=== PATIENT | male | born 1940 | race African-American/Black ===

== ENCOUNTER 2022-03-05 18:53 | Emergency (ER) | payer MEDICARE, BC, SELFPAY ==
[2022-03-05 18:59] VITALS: BP 162/81; PULSE 86; RESP 14; TEMP 37.7; O2SAT 99
--- NOTE | 2022-03-05 19:10 | ED.MALEGU ---
HPI - Male Genitourinary General Chief complaint: Urogenital-Male Stated complaint: frequent urination and ams Time Seen by Provider: 03/05/22 19:02 History of Present Illness HPI Narrative: pt says today woke up at assisted living noted frequency with urination no n/v/d/abd pain/cp.sob/f/uri or back pain no testicular issues or trauma/neuro chagnes and says better now. staff thinks he might have been a little confused no other issues Related Data Home Medications Medication Instructions Recorded Confirmed acetaminophen 325 mg tablet 325 mg PO Q6H PRN 12/30/19 amino ac-protein hydro-whey See Rx Instructions PO DAILY ml 12/30/19 protein 10 gram-100 kcal/30 mL oral liquid arginine-vitamin C-vitamin E oral 1 gm PO DAILY each 12/30/19 4.5 gram-156 mg/9.2 gram powder pkt artifi.tears(hypromellose)(PF) 0.3 1 drop EACH EYE DAILY PRN 12/30/19 % eye drops ascorbic acid (vitamin C) 1,000 mg 1 gm PO DAILY 12/30/19 tablet aspirin 325 mg tablet 325 mg PO DAILY 12/30/19 atorvastatin 20 mg tablet 20 mg PO DAILY 12/30/19 bisacodyl 10 mg rectal suppository 10 mg RECTAL DAILY PRN 12/30/19 cetirizine 10 mg tablet 5 mg PO DAILY PRN 12/30/19 diphenhydramine HCl 25 mg tablet 25 mg PO TID PRN 12/30/19 ferrous sulfate 325 mg (65 mg 325 mg PO DAILY 12/30/19 iron) tablet furosemide 20 mg tablet 20 mg PO QAM 12/30/19 guaifenesin 100 mg/5 mL oral liquid 200 mg PO Q6H PRN ml 12/30/19 insulin aspart U-100 100 unit/mL See Rx Instructions SUB-Q .sliding 12/30/19 (3 mL) subcutaneous pen scale ml insulin glargine 100 unit/mL (3 20 unit SUB-Q QPM ml 12/30/19 mL) subcutaneous pen insulin glargine 100 unit/mL (3 25 unit SUB-Q DAILY 12/30/19 mL) subcutaneous pen melatonin 5 mg tablet 5 mg PO QPM tablet 12/30/19 metformin 500 mg tablet 500 mg PO BID 12/30/19 metoprolol tartrate 50 mg tablet 50 mg PO DAILY 12/30/19 multivit with minerals-iron 18 1 tablet PO DAILY tablet 12/30/19 mg-folic ac 400 mcg-vit K 25 mcg tablet potassium chloride 10 mEq 10 meq PO DAILY 12/30/19 tablet,extended release prednisolone acetate 1 % eye 1 drop EACH EYE Q12H 12/30/19 drops,suspension tamsulosin 0.4 mg capsule 0.4 mg PO DAILY 12/30/19 travoprost 0.004 % eye drops 1 drop EACH EYE QPM 12/30/19 Allergies Allergy/AdvReac Type Severity Reaction Status Date / Time No Known Allergies Allergy Verified 03/05/22 19:08 Review of Systems Review of Systems: CONSTITUTIONAL: Denies fever, chills, or sweats. EYES: Denies visual changes, redness, or discharge. ENT: Denies rhinorrhea, congestion, sore throat, or otalgia. CARDIOVASCULAR: Denies chest pain, palpitations, or edema. RESPIRATORY: Denies cough or dyspnea. GASTROINTESTINAL: Denies abdominal pain, nausea, vomiting, or diarrhea. GENITOURINARY: Denies dysuria SKIN: Denies rash or itching. MUSCULOSKELETAL: Denies back pain, joint pain, or myalgia. NEUROLOGIC: Denies headache, numbness, or weakness. PSYCHIATRIC: Denies anxiety or depression. [facility] Past Medical History Medical History (Updated 03/05/22 @ 21:05 by Flori Sethi MD) Amputation toe Right foot Anemia Depression Diabetes Diabetic neuropathy Heart murmur HTN (hypertension) Hyperlipidemia Insomnia Prostate cancer Family History Family History (Updated 04/27/18 @ 09:11 by DOCTOR UNKNOWN) Mother Diabetes mellitus Other Cerebrovascular accident Family history of arthritis Hypertension Social History Social History Smoking status: Never smoker Alcohol intake: current Exam Narrative: APPEARANCE: Well appearing, no pain in distress, well-nourished. Head normocephalic atraumtaic. EYES: PERRLA/EOMI, conjunctivae very clear. NOSE: Normal no drainage EARS:TMS clear Jag Martinez, with good light reflex. THROAT: Pharynx clear, no exudate. NECK: Supple. No adenopathy, no masses. RESPIRATORY: Airway patent, repsirations nonlabored. Clear to auscultation bilaterally, no rales, rho
[2022-03-05 19:27] LABS: Basophils Percent Auto 0.3 % (0.2-1.2); Eosinophils Percent Auto 0.2 % (0-4.4); Hematocrit 46.4 % (42.0-52.0); Hemoglobin 15.7 g/dL (14.0-18.0); Immature Granulocyte Absolute 0.06 K/mm3 (0.00-0.031); Immature Granulocyte Percent A 0.5 % (0-0.5); Lymphocytes Absolute Auto 0.87 K/mm3 (0.9-3.2); Lymphocytes Percent Auto 6.9 % (18.3-44.2); Mean Corpuscular HGB Conc 33.8 g/dl (32-36); Mean Corpuscular Hemoglobin 31.3 pg (26-34); Mean Corpuscular Volume 92.4 fl (80-100); Mean Platelet Volume 11.7 fl (7.4-10.4); Monocytes Absolute Auto 0.9 K/mm3 (0.1-0.6); Neutrophils Absolute Auto 10.7 K/mm3 (1.3-6.7); Neutrophils Percent Auto 85.1 % (45.5-73.1); Platelet Count Result 274 k/mm3 (150-375); Red Blood Count 5.02 M/mm3 (4.6-6.20); Red Cell Distribution Width 13.4 % (11.5-14.5); White Blood Count 12.5 K/mm3 (4.5-10.0)
[2022-03-05 19:39] LABS: Alanine Aminotransferase 25 U/L (4-50); Albumin Level 4.5 g/dL (3.5-5.1); Alkaline Phosphatase 120 U/L (38-126); Anion Gap 12 mmol/L (8-16); Aspartate Amino Transferase 39 U/L (17-59); Bilirubin,Total 0.3 mg/dL (0.2-1.3); Blood Urea Nitrogen 17 mg/dL (9-20); Calcium 9.5 mg/dL (8.4-10.2); Carbon Dioxide 24 mmol/L (22-30); Chloride 104 mmol/L (98-107); Estimated CRCL calculation 62 ml/min; Estimated Glomerular Filt Rate > 60; Glucose 141 mg/dL (65-110); Potassium 3.9 mmol/L (3.4-5.0); Sodium 140 mmol/L (137-145)
[2022-03-05 20:37] LABS: Add Urine Microscopic? YES; Appearance Urine Cloudy (Clear); Bilirubin Urine Negative (Negative); Blood Urine 3+ (Negative); Color Urine Yellow (Yellow); Glucose Urine UA 3+ mg/dL (Negative); Ketones Urine 1+ mg/dL (Negative); Leukocyte Esterase Ur 2+ LEU/UL (Negative); Mucus Urine Rare /lpf; Nitrate Urine Negative (Negative); Protein Urine 2+ mg/dL (Negative); RBC Urine >75 /hpf (0-2); Specific Grav Ur 1.021 (1.001-1.035); Urobilinogen Urine Negative mg/dL (<2.0); WBC Urine 51-75 /hpf
[2022-03-05 21:13] VITALS: BP 142/96; PULSE 74; RESP 17; O2SAT 99
--- NOTE | 2022-03-05 21:22 | PC.NURSE ---
EMS arrival for transport ETA 10pm.
[2022-03-05 22:57] VITALS: BP 149/83; PULSE 76; RESP 14; O2SAT 99
[2022-03-05 23:45] VITALS: BP 168/92; PULSE 75; RESP 13; O2SAT 98
[2022-03-06 00:16] VITALS: BP 166/89; PULSE 77; RESP 13; O2SAT 98
== END 2022-03-06 00:18 ==
PROVIDERS: Emergency Provider Emergency Medicine
DX: N39.0 Urinary tract infection, site not specified (principal); E11.40 Type 2 diabetes mellitus with diabetic neuropathy, unspecified; I10 Essential (primary) hypertension; E78.5 Hyperlipidemia, unspecified; Z85.46 Personal history of malignant neoplasm of prostate; Z86.2 Personal history of diseases of the blood and blood-forming organs and certain disorders involving the immune mechanism; Z79.82 Long term (current) use of aspirin; Z79.84 Long term (current) use of oral hypoglycemic drugs; Z79.4 Long term (current) use of insulin; Z89.431 Acquired absence of right foot
CPT/HCPCS: 36415; 80053; 81001; 85025; 87086; 87088; 96365; 99284; J0696

== ENCOUNTER 2023-02-07 19:17 | Emergency (ER) | payer MEDICARE, BC, SELFPAY ==
[2023-02-07 19:19] VITALS: BP 189/72; PULSE 78; RESP 16; TEMP 36.8; O2SAT 100
[2023-02-07 19:29] LABS: Glucose Point of Care 193 mg/dl (65-105)
[2023-02-07 22:22] LABS: Appearance Urine Cloudy (Clear); Bacteria Urine None Seen /hpf; Bilirubin Urine Negative (Negative); Blood Urine 3+ (Negative); Color Urine Yellow (Yellow); Glucose Urine UA 3+ mg/dL (Negative); Ketones Urine 1+ mg/dL (Negative); Leukocyte Esterase Ur 2+ LEU/UL (Negative); Need Manual Microscopic Reviewed; Nitrate Urine Negative (Negative); Non Pathogenic Casts 0-2; Protein Urine 1+ mg/dL (Negative); RBC Urine >100 /hpf (0-2); Specific Grav Ur 1.029 (1.001-1.035); Squamous Epithelial Cell Urine None seen /hpf (Few); WBC Urine >100 /hpf; pH Urine 5.5 (5.0-9.0)
[2023-02-07 22:26] LABS: Add Urine Microscopic? YES
--- NOTE | 2023-02-08 00:09 | ED.MALEGU ---
HPI - Male Genitourinary General Chief complaint: Urogenital-Male <Rose Carvalho PA-C - Last Filed: 02/08/23 01:51> Stated complaint: frequent urination <Rose Carvalho PA-C - Last Filed: 02/08/23 01:51> Time Seen by Provider: 02/07/23 23:53 <Rose Carvalho PA-C - Last Filed: 02/08/23 01:51> History of Present Illness HPI Narrative: Patient is an 82-year-old male with a history of diabetes here for frequent urination over the past 2 weeks. He believes it is related to a diabetes medicine he recently started because when he stopped taking the medicine his symptoms improved. He states that he started the medicine again 3 days ago and his urinary frequency returned and is now associated with dysuria. He has had no fevers, chills, nausea or vomiting. He has had no pelvic pain or flank pain. He had a UTI in February of last year that was treated with outpatient antibiotics successfully. Culture grew no bacteria. He does have a history of frequent UTIs and has seen urology in the past. When he started having the symptoms he called his urologist office and does have an appointment in 2 weeks. <Rose Carvalho PA-C - Last Filed: 02/08/23 01:51> Related Data Home medications: Home Medications Medication Instructions Recorded Confirmed acetaminophen 325 mg tablet 325 mg PO Q6H PRN 12/30/19 12/20/22 amino ac-protein hydro-whey See Rx Instructions PO DAILY 12/30/19 12/20/22 protein 10 gram-100 kcal/30 mL oral liquid (ProSource) arginine-vitamin C-vitamin E oral 1 gm PO DAILY 12/30/19 12/20/22 4.5 gram-156 mg/9.2 gram powder pkt artifi.tears(hypromellose)(PF) 0.3 1 drop ophthalmic (eye) DAILY PRN 12/30/19 12/20/22 % eye drops (Retaine HPMC (PF)) ascorbic acid (vitamin C) 1,000 mg 1 gm PO DAILY 12/30/19 12/20/22 tablet atorvastatin 20 mg tablet 20 mg PO DAILY 12/30/19 12/20/22 bisacodyl 10 mg rectal suppository 10 mg RECTAL DAILY PRN 12/30/19 12/20/22 cetirizine 10 mg tablet (Zyrtec) 5 mg PO DAILY PRN 12/30/19 12/20/22 diphenhydramine HCl 25 mg tablet 25 mg PO TID PRN 12/30/19 12/20/22 (Benadryl Allergy) ferrous sulfate 325 mg (65 mg 325 mg PO DAILY 12/30/19 12/20/22 iron) tablet furosemide 20 mg tablet (Lasix) 20 mg PO QAM 12/30/19 12/20/22 guaifenesin 100 mg/5 mL oral liquid 200 mg PO Q6H PRN 12/30/19 12/20/22 insulin aspart U-100 100 unit/mL See Rx Instructions subcut 12/30/19 12/20/22 (3 mL) subcutaneous pen (Novolog .sliding scale FlexPen U-100 Insulin aspart) insulin glargine 100 unit/mL (3 20 unit subcut QPM 12/30/19 12/20/22 mL) subcutaneous pen (Basaglar KwikPen U-100 Insulin) insulin glargine 100 unit/mL (3 25 unit subcut DAILY 12/30/19 12/20/22 mL) subcutaneous pen (Basaglar KwikPen U-100 Insulin) melatonin 5 mg tablet 5 mg PO QPM 12/30/19 12/20/22 metformin 500 mg tablet 500 mg PO BID 12/30/19 12/20/22 metoprolol tartrate 50 mg tablet 50 mg PO DAILY 12/30/19 12/20/22 multivit with minerals-iron 18 1 tablet PO DAILY 12/30/19 12/20/22 mg-folic ac 400 mcg-vit K 25 mcg tablet (Multi-Day Plus Minerals) potassium chloride 10 mEq 10 meq PO DAILY 12/30/19 12/20/22 tablet,extended release prednisolone acetate 1 % eye 1 drop ophthalmic (eye) Q12H 12/30/19 12/20/22 drops,suspension tamsulosin 0.4 mg capsule 0.4 mg PO DAILY 12/30/19 12/20/22 travoprost 0.004 % eye drops 1 drop ophthalmic (eye) QPM 12/30/19 12/20/22 (Travatan Z) amitriptyline 75 mg tablet 75 mg PO QPM 03/26/20 12/20/22 aspirin 325 mg tablet 325 mg PO DAILY 03/26/20 12/20/22 dulaglutide 0.75 mg/0.5 mL 0.75 mg subcut WEEKLY 03/26/20 12/20/22 subcutaneous pen injector (Trulicity) nebivolol 20 mg tablet (Bystolic) 20 mg PO DAILY 03/26/20 12/20/22 ramipril 10 mg capsule 10 mg PO DAILY 03/26/20 12/20/22 simvastatin 20 mg tablet 20 mg PO DAILY 03/26/20 12/20/22 sitagliptin phosphate 100 mg 100 mg PO DAILY 03/26/20 12/20/22 tablet (Januvia) triamterene 37.5 1 cap PO DAILY
[2023-02-08 00:16] VITALS: BP 170/75; PULSE 57; RESP 14; O2SAT 100
[2023-02-08] MEDS: SODIUM CHLORIDE 0.9% IV 1,000 ML 999 ML IV CONT (00:16)
[2023-02-08 00:19] LABS: Basophils Percent Auto 0.4 % (0.2-1.2); Eosinophils Absolute Auto 0.1 K/mm3 (0-0.3); Eosinophils Percent Auto 1.1 % (0-4.4); Hematocrit 44.1 % (42.0-52.0); Hemoglobin 14.4 g/dL (14.0-18.0); Immature Granulocyte Absolute 0.02 K/mm3 (0.00-0.031); Immature Granulocyte Percent A 0.2 % (0-0.5); Lymphocytes Percent Auto 23.2 % (18.3-44.2); Mean Corpuscular HGB Conc 32.7 g/dl (32-36); Mean Corpuscular Hemoglobin 30.6 pg (26-34); Mean Corpuscular Volume 93.6 fl (80-100); Mean Platelet Volume 11.8 fl (7.4-10.4); Monocytes Absolute Auto 0.7 K/mm3 (0.1-0.6); Monocytes Percent Auto 7.9 % (2.6-8.5); Neutrophils Absolute Auto 5.5 K/mm3 (1.3-6.7); Neutrophils Percent Auto 67.2 % (45.5-73.1); Platelet Count Result 256 k/mm3 (150-375); Red Blood Count 4.71 M/mm3 (4.6-6.20); Red Cell Distribution Width 13.1 % (11.5-14.5); White Blood Count 8.2 K/mm3 (4.5-10.0)
[2023-02-08 00:28] LABS: Lactic Acid Reflex 2.2 mmol/L (0.7-2.0)
[2023-02-08 00:29] LABS: Alanine Aminotransferase 27 U/L (6-50); Albumin Level 3.9 g/dL (3.5-5.1); Alkaline Phosphatase 91 U/L (38-126); Anion Gap 9 mmol/L (8-16); Aspartate Amino Transferase 28 U/L (17-59); Bilirubin,Total 0.5 mg/dL (0.2-1.3); Blood Urea Nitrogen 24 mg/dL (9-20); Calcium 9.1 mg/dL (8.4-10.2); Carbon Dioxide 26 mmol/L (22-30); Chloride 107 mmol/L (98-107); Estimated CRCL calculation 79 ml/min; Estimated Glomerular Filt Rate > 60; Glucose 146 mg/dL (65-110); Potassium 3.8 mmol/L (3.4-5.0); Sodium 142 mmol/L (137-145)
[2023-02-08 00:32] LABS: Beta-Hydroxybutyrate/Acetoacetate 0.33 mmol/L (0.02-0.27)
[2023-02-08 02:00] VITALS: BP 185/54; PULSE 58; RESP 14; O2SAT 99
[2023-02-08 03:16] LABS: Reflex Lactic Acid Yes or No Add Lactic
== END 2023-02-08 03:00 | disposition home or self-care (01) ==
PROVIDERS: Emergency Medicine; Emergency Provider Physician Assistant
DX: N39.0 Urinary tract infection, site not specified (principal); E11.40 Type 2 diabetes mellitus with diabetic neuropathy, unspecified; I10 Essential (primary) hypertension; E78.5 Hyperlipidemia, unspecified; F32.A Depression, unspecified; Z85.46 Personal history of malignant neoplasm of prostate; Z79.4 Long term (current) use of insulin; Z79.84 Long term (current) use of oral hypoglycemic drugs; Z79.82 Long term (current) use of aspirin
CPT/HCPCS: 36415; 80053; 81001; 82010; 82948; 83605; 85025; 87086; 87147; 87181; 87186; 96361; 96365; 99284; J0696; J7030

== ENCOUNTER → 2023-03-27 12:34 | Outpatient (CLI) | payer MEDICARE, BC, SELFPAY ==
--- NOTE | ~2023-03-27 | US_ITS ---
US renal BI 03/27/2023 13:08 Procedure: Realtime transabdominal ultrasound of the kidneys and bladder. Indication: Chronic cystitis Comparison: 04/06/2019 Findings: Renal echotexture is normal bilaterally without contour deforming mass or renal calculus. T here is mild right pelviectasis. The right kidney measures 9.7 cm and left kidney measures 13.8 cm. T here is a large left renal cyst measuring 12.2 x 9 x 10.1 cm. Bladder within normal limits. Impression: 1: Large left renal cyst measuring up to 12.2 cm. Reviewed, dictated and finalized at location B. Impression: 1: Large left renal cyst measuring up to 12.2 cm.
== END ==
PROVIDERS: PCP Urology; Visit Provider Urology
DX: N30.20 Other chronic cystitis without hematuria (principal); N28.1 Cyst of kidney, acquired
CPT/HCPCS: 76775